=== PATIENT | male | born 1965 | race Caucasian/White ===

== ENCOUNTER 2024-11-23 08:06 | Day surgery (SDC) | payer MEDICAID ==
[2024-11-16 16:54] LABS: ALBUMIN 4.3 G/DL (3.4-5.0); ALBUMIN/GLOBULIN RATIO 1.2 (1.1-1.5); ALKALINE PHOSPHATASE 52 IU/L (46-116); BLOOD UREA NITROGEN 22 MG/DL (7-18); BUN/CREATININE RATIO 16.4 (10.0-20.0); CALCIUM 9.8 MG/DL (8.5-10.1); CHLORIDE 101 MMOL/L (99-107); CREATININE 1.34 MG/DL (0.60-1.10); PRE OP ALT 27 U/L (30-65); PRE OP ANION GAP 11 (8-16); PRE OP AST 16 U/L (10-37); PRE OP BILIRUB, TOTAL 0.5 MG/DL (0.0-1.0); PRE OP GLUCOSE 100 MG/DL (70-104); PRE OP POTASSIUM 4.3 MMOL/L (3.4-5.1); PRE OP SODIUM 141 MMOL/L (135-145); TOTAL CARBON DIOXIDE 28.6 MMOL/L (24-32); eGFR 55 ML/MIN
[2024-11-16 17:04] LABS: BASOPHILS # (AUTO) 0.1 X10'3 (0-0.2); EOSINOPHILS # (AUTO) 0.5 X10'3 (0-0.9); EOSINOPHILS % (AUTO) 4.5 % (0-6); LYMPHOCYTES # (AUTO) 3.4 X10'3 (1.1-4.8); LYMPHOCYTES % (AUTO) 29.3 % (21-51); MEAN CORPUSCULAR HEMOGLOBIN 30.3 PG (27.0-31.0); MEAN CORPUSCULAR HGB CONC 34.5 g/dL (33.0-36.5); MEAN CORPUSCULAR VOLUME 87.9 FL (78-98); MEAN PLATELET VOLUME 7.1 FL (7.4-10.4); MONOCYTES # (AUTO) 2.1 X10'3 (0-0.9); NEUTROPHILS # (AUTO) 5.5 X10'3 (1.8-7.7); NEUTROPHILS % (AUTO) 47.2 % (42-75); PRE OP HEMATOCRIT 52.2 % (42.0-52.0); PRE OP PLATELET COUNT 325 X10'3 (140-440); PRE OP WHITE BLOOD COUNT 11.7 10'3 (4.8-10.8); RED BLOOD COUNT 5.93 X10'6 (4.70-6.10); RED CELL DISTRIBUTION WIDTH 14.6 % (11.5-14.5)
[2024-11-16 17:59] LABS: TOTAL CELLS COUNTED 100
[2024-11-16 18:00] LABS: PLATELET ESTIMATE NORMAL
[2024-11-23] VITALS (10 sets, daily range): BP systolic 147–168; BP diastolic 83–105; PULSE 80–96; RESP 14–16; TEMP 97.2; O2SAT 94–98
[~2024-11-23] VITALS: Ht 160 cm; Wt 75.8 kg
[2024-11-23] MEDS: DOCUMENT DATE & TIME OF BETA-BLOCKER PO ONE (05:30)
[~2024-11-23 08:06] MED LIST: ALBU8HFA PO; AMLO5TAB16 PO; BUPIVAcaine 2.5mg/ml inj 50ml vial (contains preservative) ONE; CARV-50 PO; EMPA25TA PO; FENO145T25 PO; FINE20TA PO; HYDR100T12 PO; HYDR25TA4 PO; LIDOcaine 1% 30ml preserv. free vial ONE; LORA-269 PO; LORA10TA7 PO; MARIJUANA INH; METF-1203 PO; TIRZ10PE SQ; albuterol 2.5 MG/3 ML nebule NEB PRN
[2024-11-23] MEDS: famotidine 20mg tablet PO ONE (09:10)
[2024-11-23] MEDS: ceFAZolin 2gm in dextrose, iso 50 ML IV ONE (09:11)
[2024-11-23] MEDS: ringers solution, lacted 1,000 ML IV SCH (09:11)
[2024-11-23] MEDS ORDERED: proCHLORperazine 10 MG/2 ml inj IV PRN (09:35)
[2024-11-23] MEDS ORDERED: ondansetron/PF 4mg/2ml inj IV PRN (09:35)
[2024-11-23] MEDS ORDERED: enalaprilat 1.25mg/ml 2ml vial IV PRN (09:35)
[2024-11-23] MEDS ORDERED: ringers solution, lacted 1,000 ML IV SCH (09:35)
[2024-11-23] MEDS ORDERED: morphine 4 MG/ML inj SYRINge IV PRN (09:35)
[2024-11-23] MEDS ORDERED: morphine 2 MG/ML inj. syringe IV PRN (09:35)
[2024-11-23] MEDS ORDERED: meperidine/PF 25mg/ml syringe IV PRN ×3 (09:35)
[2024-11-23] MEDS ORDERED: midazolam 1 mg/ML 2ml injection ONE (09:45)
[2024-11-23] MEDS ORDERED: propofol inj 20 ML IV ONE (09:45)
[2024-11-23] MEDS ORDERED: LIDOcaine 2% (20mg/ml) 5ml vial ONE (09:45)
[2024-11-23] MEDS ORDERED: fentaNYL /PF 50mcg/ml 5ml ampule ONE (09:45)
[2024-11-23] MEDS ORDERED: sevoflurane 250ml liquid IH ONE (10:07)
[2024-11-23] MEDS ORDERED: rocuronium 10mg/ml inj IV ONE (10:28)
[2024-11-23] MEDS ORDERED: ondansetron/PF 4mg/2ml inj ONE (11:45)
[2024-11-23] MEDS: labetalol 20mg/4ml (5mg/ml) syringe IV PRN (12:48)
[2024-11-23] MEDS: HYDROcodone/acetaminophen 5mg/325mg tablet PO PRN (12:48)
== END 2024-11-23 13:05 | disposition home or self-care (01) ==
LOC: PAS 08:06
PROVIDERS: ATTEND Surgery
DX: K42.9 Umbilical hernia without obstruction or gangrene (principal); K40.91 Unilateral inguinal hernia, without obstruction or gangrene, recurrent; K40.90 Unilateral inguinal hernia, without obstruction or gangrene, not specified as recurrent; Z79.899 Other long term (current) drug therapy; Z98.890 Other specified postprocedural states; E11.9 Type 2 diabetes mellitus without complications; J44.9 Chronic obstructive pulmonary disease, unspecified; F41.8 Other specified anxiety disorders; I10 Essential (primary) hypertension
CPT/HCPCS: 36415; 49591; 49623; 49650; 49651; 80053; 82948; 85025; 93005; C1781; J0690; J1100; J2003; J2250; J2405; J2704; J2710; J3010; J3490; J7030; J7120; S2900; Z7506; Z7508; Z7512; 85007; A4215; A4618

== ENCOUNTER → 2025-03-15 | Day surgery (SDC) | payer MEDICAID ==
[2025-03-14 14:58] LABS: BASOPHILS # (AUTO) 0.1 X10'3 (0-0.2); EOSINOPHILS # (AUTO) 0.4 X10'3 (0-0.9); EOSINOPHILS % (AUTO) 2.8 % (0-6); LYMPHOCYTES # (AUTO) 2.7 X10'3 (1.1-4.8); LYMPHOCYTES % (AUTO) 21.2 % (21-51); MEAN CORPUSCULAR HEMOGLOBIN 29.3 PG (27.0-31.0); MEAN CORPUSCULAR HGB CONC 33.8 g/dL (33.0-36.5); MEAN CORPUSCULAR VOLUME 86.6 FL (78-98); MEAN PLATELET VOLUME 6.5 FL (7.4-10.4); MONOCYTES % (AUTO) 15.9 % (2-12); NEUTROPHILS # (AUTO) 7.6 X10'3 (1.8-7.7); NEUTROPHILS % (AUTO) 59.1 % (42-75); PRE OP HEMATOCRIT 56.8 % (42.0-52.0); PRE OP PLATELET COUNT 365 X10'3 (140-440); PRE OP WHITE BLOOD COUNT 12.9 10'3 (4.8-10.8); RED BLOOD COUNT 6.56 X10'6 (4.70-6.10); RED CELL DISTRIBUTION WIDTH 14.6 % (11.5-14.5)
[2025-03-14 15:00] LABS: PRE OP HEMOGLOBIN 19.2 g/dL (14.0-17.9)
[2025-03-14 15:13] LABS: ALBUMIN 4.3 G/DL (3.4-5.0); ALBUMIN/GLOBULIN RATIO 1.3 (1.1-1.5); ALKALINE PHOSPHATASE 56 IU/L (46-116); BLOOD UREA NITROGEN 17 MG/DL (7-18); BUN/CREATININE RATIO 13.7 (10.0-20.0); CALCIUM 9.5 MG/DL (8.5-10.1); CHLORIDE 103 MMOL/L (99-107); CREATININE 1.24 MG/DL (0.60-1.10); PRE OP ALT 16 U/L (30-65); PRE OP ANION GAP 14 (8-16); PRE OP AST 18 U/L (10-37); PRE OP BILIRUB, TOTAL 0.5 MG/DL (0.0-1.0); PRE OP GLUCOSE 172 MG/DL (70-104); PRE OP SODIUM 143 MMOL/L (135-145); TOTAL CARBON DIOXIDE 26.2 MMOL/L (24-32); TOTAL PROTEIN 7.7 G/DL (6.4-8.2); eGFR 59 ML/MIN
[2025-03-14 15:18] LABS: PRE OP POTASSIUM 3.6 MMOL/L (3.4-5.1)
[2025-03-14 15:30] LABS: PLATELET ESTIMATE NORMAL; TOTAL CELLS COUNTED 100
[~2025-03-15] VITALS: Ht 165.1 cm; Wt 72.6 kg
[~2025-03-15] MED LIST changes: +ALBU8HFA INH; -ALBU8HFA PO; +AMLO5TAB PO; -AMLO5TAB16 PO; -FENO145T25 PO; +FENO145T38 PO; -HYDR100T12 PO; -HYDR25TA4 PO; +HYDR25TA5 PO; +HYDRALAZINE PO; -LORA-269 PO; -MARIJUANA INH; -METF-1203 PO; +METF-436 PO; -albuterol 2.5 MG/3 ML nebule NEB PRN; +ceFAZolin 2gm/dext,iso 50mL 50 ML IV ONE; +famotidine 20mg tablet PO ONE; +ringers solution, lacted 1,000 ML IV SCH
[2025-03-15] MEDS: DOCUMENT DATE & TIME OF BETA-BLOCKER PO ONE (05:30)
--- NOTE | 2025-03-15 08:50 | ELECTROCARDIOGRAPH REPORT ---
[facility] Test Date: 2025-03-15 Test Time: 08:46:46 Pat Name: SARA BAILEY Department: [facility] Patient ID: [facility]-[id number] Room: Gender: M Business Intelligence Manager: CLEMENCIA : 1965 Requested By: JANEL FERREIRA Order Number: [id number] Reading MD: Dr. Taras Hager Measurements Intervals [place] Rate: 143 P: 0 [place]: 0 QRS: 78 QRSD: 110 T: 81 QT: 339 QTc: 523 Interpretive Statements Junctional tachycardia RBBB Minimal ST depression, lateral leads Prolonged QT interval Electronically Signed On 03-16-2025 8:50:[address] Taras Hager Please click the below link to view image of tracing.
== END | disposition home or self-care (01) ==
LOC: PAS 07:55
PROVIDERS: ATTEND Surgery
DX: K40.90 Unilateral inguinal hernia, without obstruction or gangrene, not specified as recurrent (principal); Z53.8 Procedure and treatment not carried out for other reasons; Z98.890 Other specified postprocedural states; J44.9 Chronic obstructive pulmonary disease, unspecified; I10 Essential (primary) hypertension; Z79.899 Other long term (current) drug therapy; F32.A Depression, unspecified; F41.9 Anxiety disorder, unspecified; I47.19 Other supraventricular tachycardia
CPT/HCPCS: 36415; 80053; 85025; 93005; J2003; J7120; 85007; J3490